=== PATIENT | female | born 1960 | race Caucasian/White ===

== ENCOUNTER 2019-06-27 17:09 | Emergency (ER) | payer BC ==
[~2019-06-27] VITALS: Ht 160 cm; Wt 80.3 kg
[2019-06-27 17:16] VITALS: BP 134/77
--- NOTE | 2019-06-27 17:40 | NUR ---
58 Y/O F C/O ENTIRE BODY PAIN AFTER RECEIVING A SPERVADO TREATMENT AT HER [facility] OFFICE TODAY. THE PATIENT STATES THAT DURING HER TREATMENT, SHE BEGAN TO VOMIT AND HAVE SEVERE BODY PAIN. PATIENTS MD AT [facility] APPOINT[facility] DID AN EKG IN THE OFFICE AND ADVISED PATIENT TO GO INTO THE ER FOR FURTHER EVALUATION. PATIENT STATES THAT SHE ALSO HAD A MIGRAINE KLEIN TODAY. PATIENT HAS A RECENT DIAGNOSIS OF FIBROMYALGIA AND HAS PAIN 10/10 IN HER UPPER ABDOMEN, ARMS, NECK AND HEAD THAT SHE FEELS COULD BE A RESULT OF THE FIBROMYALGIA. HX: NKA, BUNIONECTOMY LEFT FOOT, FIBROMYALGIA
[2019-06-27 17:45] LABS: BASOPHILS % (AUTO) 0.3 % (0.0-2.0); EOSINOPHILS # (AUTO) 0.3 K/uL (0-0.4); EOSINOPHILS % (AUTO) 2.8 % (0.0-4.0); HEMATOCRIT 51.3 % (36-48); HEMOGLOBIN 16.9 g/dL (12.0-16.0); LYMPHOCYTES # (AUTO) 0.9 K/uL (2.5-16.5); LYMPHOCYTES % (AUTO) 8.2 % (20.5-51.1); MEAN CORPUSCULAR HEMOGLOBIN 31 pg (27-31); MEAN CORPUSCULAR HGB CONC 33 g/dL (33-37); MEAN CORPUSCULAR VOLUME 93.1 fL (80-94); MONOCYTES # (AUTO) 0.5 K/uL (0.8-1.0); MONOCYTES % (AUTO) 4.7 % (1.7-9.3); NEUTROPHILS # (AUTO) 9.1 K/uL (1.8-7.7); PLATELET COUNT (AUTO) 250 K/uL (140-450); RED BLOOD CELL COUNT(AUTO) 5.51 MIL/uL (4.20-5.40); RED CELL DISTRIBUTION WIDTH 13.5 % (11.6-13.7); WHITE BLOOD COUNT (AUTO) 10.8 K/uL (4.8-10.8)
[2019-06-27 18:11] LABS: ANION GAP 13.6 (8-16); CARBON DIOXIDE 26.7 mmol/L (21-32); POTASSIUM 4.3 mmol/L (3.5-5.1)
[2019-06-27 18:12] LABS: CREATININE 0.9 mg/dL (0.6-1.3); TOTAL BILIRUBIN 0.5 mg/dL (0.0-1.0)
[2019-06-27 18:13] LABS: ALBUMIN 3.7 g/dL (3.4-5.0)
[2019-06-27 18:29] VITALS: BP 124/63
--- NOTE | 2019-06-27 18:29 | NUR ---
Patient discharged with v/s stable. Written and verbal after care instructions given and explained. Patient alert, oriented and verbalized understanding of instructions. Ambulatory with steady gait. All questions addressed prior to discharge. ID band removed. Patient advised to follow up with PMD. Rx of PRILOSEC AND MOTRIN given. Patient educated on indication of medication including possible reaction and side effects. Opportunity to ask questions provided and answered.
== END 2019-06-27 18:29 | disposition home or self-care (01) ==
LOC: MED 17:09
DX: R07.9 Chest pain, unspecified (principal); M79.18 Myalgia, other site; Z90.710 Acquired absence of both cervix and uterus; Z98.890 Other specified postprocedural states
CPT/HCPCS: 36415; 71045; 80053; 84484; 85025; 87804; 99284; Q0092; 93005